=== PATIENT | male | born 1945 | race Caucasian/White ===

== ENCOUNTER 2024-06-14 15:06 | Emergency (ER) | payer MEDICARE ==
[~2024-06-14] VITALS: Ht 190.5 cm; Wt 136.1 kg
[2024-06-14 16:01] VITALS: PULSE 61; RESP 18; TEMP 98; O2SAT 98
[2024-06-14] MEDS ORDERED: TETRACAINE HCL 0.5% OPTH SOLN 4 ML BTL ONE (16:24)
== END 2024-06-14 16:45 | disposition left against medical advice (07) ==
LOC: ER 16:22
DX: H57.12 Ocular pain, left eye (principal); H57.02 Anisocoria; I48.91 Unspecified atrial fibrillation
CPT/HCPCS: 99282